=== PATIENT | male | born 1955 | race Caucasian/White ===

== ENCOUNTER 2017-08-13 10:23 | Inpatient (IN) | payer OTHER ==
[2017-08-13 11:53] LABS: Troponin I 0.011 ng/mL (< 0.028)
[2017-08-13] MEDS ORDERED: Acetaminophen 325 MG TAB PO PRN (12:45)
[2017-08-13] MEDS ORDERED: Guaifenesin DM 100-10/5 ML UDCUP PO PRN (12:45)
[2017-08-13] MEDS ORDERED: Senokot 8.6 MG TAB PO PRN (12:45)
[2017-08-13] MEDS ORDERED: Nitroglycerin 0.4 MG TAB (25 Tab Bottle) PO PRN (12:45)
[2017-08-13 13:33] VITALS: BMI 25.4
[2017-08-13 15:07] LABS: Troponin I Less than 0.010 ng/mL (< 0.028)
[2017-08-13] MEDS: Enoxaparin Sodium 80 MG/0.8 ML SYRINGE SC SCH (20:28)
[2017-08-13] MEDS: Famotidine 20 MG TAB PO SCH (20:28)
--- NOTE | 2017-08-13 20:42 | HP ---
REASON FOR ADMISSION: Chest pain. HISTORY OF PRESENTING ILLNESS: The patient gives history of waking up around 1: 00 in the morning with chest pain. He took nitroglycerin sublingual tablets. After some time, patient developed shortness of breath. He also threw up one time. It felt like he was freezing. He went inside a quilt and finally got up at 4:30. He was still not feeling well. The patient got dressed and went to get his flu shot prior to going to work. In the ER, he was evaluated and was sent over here. No complaints of palpitation, PND or orthopnea. No complaints of cough or expectoration. No complaints of urinary symptoms including frequency or urgency. PAST MEDICAL AND SURGICAL HISTORY: History of coronary artery disease with prior CABG done 4 years back, hypertension, dyslipidemia, carpal tunnel surgery , right foot surgery. CURRENT MEDICATIONS: Patient takes aspirin 81 mg p.o. daily, Lipitor 40 mg p.o. daily, lisinopril 5 mg p.o. daily, vitamin C 1000 mg p.o. daily, Plavix 75 mg p.o. daily, Ocuvite 1 capsule daily, Flonase for allergies. ALLERGIES: No known drug allergies. PERSONAL HISTORY: Smokes half pack a day and drinks 4 beers on a daily basis. Drinks 8-12 beers on the weekends. Does not abuse drugs. FAMILY HISTORY: Mother at the age of 76 years. She has had coronary artery disease. Father at the age of 74. He has had history of coronary artery disease. REVIEW OF SYSTEMS: The following complete review of systems was negative, unless otherwise mentioned in the HPI or below: CONSTITUTIONAL: Weight loss or gain, ability to conduct usual activities. SKIN: Rash, itching. EYES: Double vision, pain. ENT/MOUTH: Nose bleeding, neck stiffness, pain, tenderness. CARDIOVASCULAR: Palpitations, dyspnea on exertion, orthopnea. RESPIRATORY: Shortness of breath, wheezing, cough, hemoptysis, fever or night sweats. GASTROINTESTINAL: Poor appetite, abdominal pain, heartburn, nausea, vomiting, constipation, or diarrhea. GENITOURINARY: Urgency, frequency, dysuria, nocturia. MUSCULOSKELETAL: Pain, swelling. NEUROLOGIC/PSYCHIATRIC: Anxiety, depression. ALLERGY/IMMUNOLOGIC: Skin rash, bleeding tendency. PHYSICAL EXAMINATION: GENERAL: The patient is a 62-year-old male who is currently not in any acute distress and is chest pain free. VITAL SIGNS: Blood pressure 126/78, pulse 84 per minute, respiratory rate 18 per minute, temperature 98.2 degrees Fahrenheit, saturating 97% on room air. NECK: Supple, no elevated JVD. HEENT: Extraocular muscles intact. Pupils reacting to light. Oral cavity mucous membranes are moist. No exudates or congestion. CARDIOVASCULAR: S1, S2 heard. Regular rhythm. RESPIRATORY SYSTEM: Air entry 2+ bilateral. Scattered rhonchi plus no rales or wheezing. ABDOMEN: Soft, bowel sounds heard. No tenderness, rigidity or guarding. EXTREMITIES: No peripheral edema or calf tenderness. VASCULAR SYSTEM: Peripheral pulses 1+ bilateral. No ischemic ulcerations or gangrene. CENTRAL NERVOUS SYSTEM: No gross focal deficits seen. Patient is alert, awake , oriented x3. PSYCHIATRIC: The patient's mood is euthymic. No hallucinations or delusions. LABORATORY AND X-RAY FINDINGS: Chest x-ray done shows no acute cardiopulmonary abnormalities. White count of 10, H\T\H 16 and 48, platelet count 217 with 75% neutrophils, MCV is 93. Electrolytes are stable. BUN 18, creatinine 1.0. Liver enzymes are within normal limits. CK level was 350, CK-MB 2.9. Albumin is 4.8. Troponin x2 is negative. BNP 14.2. EKG done shows normal sinus rhythm at 84 beats per minute. There are signs of LVH. CLINICAL IMPRESSION AND PLAN: The patient will be under observation on telemetry for chest pain, rule out acute coronary syndrome. The patient has had nuclear stress test done in February of last year. He has had another nuclear stress test done in 04/2014, which was negative for any reversible ischemia. In view of these 2 stress tests done in the previous years, we will trend his troponin and consult Dr. Weiss, his Busboy. The patient states he is compliant with his medications. We will continue his aspirin, Plavix, lisinopril, and Lipitor as before. We will also place him on DuoNebs q.6 hourly. Patient clinically has no chronic obstructive pulmonary disease flare- up. The patient clinically has no wheezing or shortness of breath. We will continue to closely monitor him on telemetry. TYRELL
--- NOTE | 2017-08-13 21:48 | CON ---
DATE OF CONSULTATION: 08/13/2017 HISTORY OF PRESENT ILLNESS: The patient is a pleasant 62-year-old gentleman, who presents with recurrent chest discomfort. The patient has a long history of coronary artery disease. He has previously undergone coronary bypass graft surgery in 2000. He underwent a followup catheterization in 2011. He was found to have patent [place] to the LAD and a patent graft to the ramus. There was an occluded radial graft , The right coronary artery,had a 30% lesion. The patient subsequently has been admitted on several occasions with chest pain. He has undergone several previous nuclear stress which revealed no evidence of ischemia. The patient states he has not had any chest discomfort for the past 6 months. He was not feeling well when he woke up with left-sided chest discomfort. The patient became nauseated and vomited. He took 1 nitroglycerin tablet with improvement in his chest discomfort. The patient states that he had further left-sided chest discomfort. This radiated up into his neck and down his left arm. The patient received nitroglycerin spray and nitro paste applied to his chest wall. The patient's chest pain eventually resolved. He reports having no present chest discomfort. PAST MEDICAL HISTORY: 1. Coronary artery disease. 2. Hypertension. 3. Dyslipidemia. PAST SURGICAL HISTORY: Coronary bypass graft surgery and carpal tunnel surgery. SOCIAL HISTORY: The patient continues to smoke. MEDICATIONS: Aspirin 81 daily, Plavix 75 daily, Crestor 40 at bedtime, lisinopril 5 daily, and Zyrtec 10 mg daily. ALLERGIES: No known drug allergies. REVIEW OF SYSTEMS: Ten-point system otherwise unremarkable. No history of easy bruising or bleeding. PHYSICAL EXAMINATION: GENERAL: Well-developed gentleman in no acute distress. VITAL SIGNS: Blood pressure 131/67. NECK: No jugular venous distention. No carotid bruits. LUNGS: Clear to auscultation. HEART: Regular rate and rhythm, normal S1, S2, no murmurs. ABDOMEN: Nondistended. EXTREMITIES: Show no edema. SKIN: Warm and dry. NEUROLOGIC: Nonfocal. VASCULAR: Radial pulses are 2+. LABORATORY DATA: Sodium 141, potassium 4.4, chloride 104, bicarbonate 23, BUN 18, creatinine is 1.07. Glucose is 101. Troponin less than 0.01. White blood cell count is 10.4, hemoglobin 16.1, hematocrit 48.1, and his platelets are 217. EKG revealed normal sinus rhythm, normal ECG. IMPRESSION: 1. Unstable angina. 2. History of coronary artery bypass graft surgery with an occluded graft. 3. Hypertension. 4. Dyslipidemia. 5. Tobacco abuse. This gentleman presents with chest pain suggestive of unstable angina. We would treat the patient will full dose Lovenox. We will add Imdur. We would continue the patient on aspirin and Plavix. We will follow this patient with you through his hospitalization. TYRELL
[2017-08-14 06:31] LABS: #Basophils 0.1 thou/uL (0.0-0.2); #Eosinphils 0.5 thou/uL (0.0-0.7); #Lymphocytes 2.2 thou/uL (1.20-3.40); #Monocytes 0.8 thou/uL (0.11-0.59); #Neutrophils 5.4 thou/uL (1.40-6.50); %Basophils 0.6 % (0.0-1.0); %Eosinophils 5.4 % (0.0-10.0); %Lymphocytes 24.4 % (21.0-51.0); %Monocytes 9.4 % (0.0-10.0); Hematocrit 40.7 % (42.0-52.0); Mean Platelet Volume 6.6 fL (7.4-10.4)
[2017-08-14 07:10] LABS: Calcium 8.7 mg/dL (7.8-10.44); Chloride 103 mmol/L (98-107)
[2017-08-14 07:29] LABS: BUN (Urea Nitrogen) 18 mg/dL (8.4-25.7); Calc. Creatinine Clearance 89 mL/min (70-130); Carbon Dioxide 23 mmol/L (23-31); Cholesterol 125 mg/dl (< 200 Desired); Estimated GFR-MDRD Greater than 90; LDL Cholesterol, Calculated 45 mg/dL
[2017-08-14 07:35] LABS: Anion Gap 15 mmol/L (10-20)
[2017-08-14] MEDS ORDERED: Sodium Chloride 0.9% 10 ML ONE (08:03)
[2017-08-14] MEDS ORDERED: Enoxaparin Sodium 40 MG/0.4 ML SYRINGE SC SCH (09:00)
[2017-08-14] MEDS: Lisinopril 5 MG TAB PO SCH (09:16)
[2017-08-14] MEDS: Famotidine 20 MG TAB PO SCH ×2 (09:16→21:25)
[2017-08-14] MEDS: Atorvastatin Calcium 40 MG TAB PO SCH (09:16)
[2017-08-14] MEDS: Clopidogrel Bisulfate 75 MG TAB PO SCH (09:16)
--- NOTE | 2017-08-14 09:19 | PDOC.PN ---
- Subjective Encounter Start Date: 08/14/17 Encounter Start Time: 08:30 Subjective: no chest pain or sob or palp -: feels better this morning - Objective Resuscitation Status: Resuscitation Status FULL:Full Resuscitation MAR Reviewed: Yes Vital Signs & Weight: Vital Signs (12 hours) Temp Pulse Resp BP Pulse Ox 08/14/17 08:25 97.9 F 57 L 14 106/75 95 08/14/17 08:00 95 08/14/17 04:15 97.9 F 60 14 104/60 96 Weight Weight 153 lb 2 oz I&O: 08/13/17 08/14/17 08/15/17 06:59 06:59 06:59 Intake Total 1280 Output Total 850 Balance 430 Result Diagrams: 08/14/17 05:59 08/14/17 05:59 Phys Exam - Physical Examination HEENT: PERRLA, moist MMs Neck: no JVD, supple Respiratory: no wheezing, no rales Cardiovascular: RRR, no significant murmur Gastrointestinal: soft, non-tender, positive bowel sounds Musculoskeletal: no edema, pulses present Neurological: non-focal, moves all 4 limbs Psychiatric: A&O x 3 Dx/Plan (1) Unstable angina Status: Acute (2) CAD (coronary artery disease) Code(s): I25.10 - ATHSCL HEART DISEASE OF [place] CORONARY ARTERY W/O ANG PCTRS Status: Chronic Qualifiers: Coronary Disease-Associated Artery/Lesion type: bypass graft [place] vs. transplanted heart: [place] heart Associated angina: with unstable angina Qualified Code(s): I25.700 - Atherosclerosis of coronary artery bypass graft(s) , unspecified, with unstable angina pectoris (3) HTN (hypertension) Code(s): I10 - ESSENTIAL (PRIMARY) HYPERTENSION Status: Chronic Qualifiers: Hypertension type: essential hypertension Qualified Code(s): I10 - Essential (primary) hypertension (4) Dyslipidemia Code(s): E78.5 - HYPERLIPIDEMIA, UNSPECIFIED Status: Chronic (5) Chest pain Code(s): R07.9 - CHEST PAIN, UNSPECIFIED Status: Acute Qualifiers: Ischemic chest pain type: unstable angina pectoris - Plan on asp, plavix and lipitor -: lovenox 70mg sc q12h -: imdur daily -: will f/u * . Review of Systems - Medications/Allergies Allergies/Adverse Reactions: Allergies Allergy/AdvReac Type Severity Reaction Status Date / Time No Known Allergies Allergy Verified 10/23/15 04:31 Medications: Current Medications Acetaminophen (Tylenol) 650 mg PO Q4H PRN PRN Reason: Headache/Fever or Pain Aspirin (Aspirin Chewable) 81 mg PO DAILY [facility] Last Admin: 08/14/17 09:16 Dose: 81 mg Atorvastatin Calcium (Lipitor) 40 mg PO DAILY [facility] Last Admin: 08/14/17 09:16 Dose: 40 mg Clopidogrel Bisulfate (Plavix) 75 mg PO QAM [facility] Last Admin: 08/14/17 09:16 Dose: 75 mg Diazepam (Valium) 5 mg PO ONE [facility] Stop: 08/15/17 05:01 Enoxaparin Sodium (Lovenox) 40 mg SC [id number] [facility] Famotidine (Pepcid) 20 mg PO BID [facility] Last Admin: 08/14/17 09:16 Dose: 20 mg Guaifenesin/Dextromethorphan (Robitussin Dm) 15 ml PO Q4H PRN PRN Reason: Cough Sodium Chloride (Normal Saline 0.9%) 1,000 mls @ 100 mls/hr IV .Q10H [facility] Isosorbide Mononitrate (Imdur Er) 30 mg PO DAILY [facility] Last Admin: 08/14/17 09:17 Dose: 30 mg Lisinopril (Zestril) 5 mg PO DAILY [facility] Last Admin: 08/14/17 09:16 Dose: 5 mg Miscellaneous Information (Communication Order-Pharmacy) 0 each FS ONE [facility] Stop: 08/15/17 15:00 Nitroglycerin (Nitrostat) 0.4 mg PO Q5MIN PRN PRN Reason: Chest Pain Senna (Senokot) 2 tab PO HSPRN PRN PRN Reason: Constipation
[2017-08-14] MEDS: Enoxaparin Sodium 80 MG/0.8 ML SYRINGE SC SCH (09:23)
[2017-08-14] MEDS: Enoxaparin Sodium 40 MG/0.4 ML SYRINGE SC SCH ×2 (09:27→21:26)
--- NOTE | 2017-08-14 09:40 | PRG ---
DATE OF SERVICE: 08/14/2017 SUBJECTIVE: Mr. Woodard is doing well today. He has had no further chest pain. I reviewed the amy t. He had a prolonged episode of chest pain yesterday which was coming and going at prolonged time, also radiated into the left side of his neck and left arm. It sounds like angina. PHYSICAL EXAMINATION: VITAL SIGNS: His blood pressure is 106/75, pulse 57 and regular. LUNGS: Clear. CARDIAC: Normal S1, normal S2. ASSESSMENT: 1. Probable unstable angina. 2. Previous bypass surgery. 3. Coronary artery disease. PLAN: Recommend he proceed to cardiac catheterization. Discussed risks of stroke, heart attack, IO DINE ALLERGY, loss of blood supply to the leg or kidney, stent thrombosis, stent restenosis. He und erstands and wishes to proceed. We will schedule this for tomorrow morning.
[2017-08-14] MEDS ORDERED: Lorazepam 0.5 MG TAB PO PRN (20:40)
[2017-08-15] MEDS ORDERED: Iopamidol 370 76% 100 ML VIAL ONE ×2 (00:52→12:00)
[2017-08-15] MEDS ORDERED: Diazepam 5 MG TAB PO SCH (05:00)
[2017-08-15] MEDS: Sodium Chloride 0.9% 1,000 ML IV SCH ×2 (05:32→08:58)
[2017-08-15] MEDS: Famotidine 20 MG TAB PO SCH (05:32)
[2017-08-15] MEDS: Lisinopril 5 MG TAB PO SCH (05:33)
[2017-08-15] MEDS: Clopidogrel Bisulfate 75 MG TAB PO SCH (05:33)
[2017-08-15] MEDS: Atorvastatin Calcium 40 MG TAB PO SCH (05:34)
--- NOTE | 2017-08-15 06:48 | DIS ---
DATE OF ADMISSION: 08/13/2017 DATE OF DISCHARGE: 08/15/2017 HOSPITAL COURSE: The patient was admitted and underwent an aortic valve replacement with 3-vessel c oronary artery bypass grafting. He had placement of a #23 [place] pericardial valve. His postoperati ve course was uneventful. Discharge weight was 195 pounds. Discharge hemoglobin was 13.9, creatini ne 0.85. The patient will resume his home medications. No prescriptions have been written. Sugges tion for placement in longterm unit was rejected by the patient, although he appears able to go home with independent ambulation without difficulty. Discharge and follow up instructions were bing adam.
--- NOTE | 2017-08-15 08:32 | PDOC.PN ---
- Subjective Encounter Start Date: 08/15/17 Encounter Start Time: 08:31 Subjective: No chest pain currently -: No SOB -: No n/v/diaphoresis - Objective Resuscitation Status: Resuscitation Status FULL:Full Resuscitation MAR Reviewed: Yes Vital Signs & Weight: Vital Signs (12 hours) Temp Pulse Resp BP Pulse Ox 08/15/17 08:00 97.8 F 53 L 20 101/69 96 08/15/17 05:33 63 08/15/17 04:00 97.7 F 63 18 144/89 H 97 Weight Weight 150 lb 4.8 oz I&O: 08/14/17 08/15/17 08/16/17 06:59 06:59 06:59 Intake Total 1280 710 Output Total 850 875 Balance 430 -165 Result Diagrams: 08/14/17 05:59 08/14/17 05:59 Phys Exam - Physical Examination Constitutional: NAD HEENT: moist MMs, sclera anicteric Neck: no nodes, no JVD Respiratory: no wheezing, no rales Cardiovascular: RRR, no significant murmur Gastrointestinal: soft, non-tender, positive bowel sounds Neurological: non-focal, moves all 4 limbs Psychiatric: normal affect Skin: no rash, normal turgor Dx/Plan (1) Unstable angina Status: Acute (2) CAD (coronary artery disease) Code(s): I25.10 - ATHSCL HEART DISEASE OF [place] CORONARY ARTERY W/O ANG PCTRS Status: Chronic Qualifiers: Coronary Disease-Associated Artery/Lesion type: bypass graft [place] vs. transplanted heart: [place] heart Associated angina: with unstable angina Qualified Code(s): I25.700 - Atherosclerosis of coronary artery bypass graft(s) , unspecified, with unstable angina pectoris (3) Dyslipidemia Code(s): E78.5 - HYPERLIPIDEMIA, UNSPECIFIED Status: Chronic (4) HTN (hypertension) Code(s): I10 - ESSENTIAL (PRIMARY) HYPERTENSION Status: Chronic Qualifiers: Hypertension type: essential hypertension Qualified Code(s): I10 - Essential (primary) hypertension (5) Chest pain Code(s): R07.9 - CHEST PAIN, UNSPECIFIED Status: Acute Qualifiers: Ischemic chest pain type: unstable angina pectoris - Plan Chest pain with h/o CABG for CAD * continue cardioprudent meds * appreciate cardiology input - cath scheduled for 10am * check labs in AM
[2017-08-15] MEDS ORDERED: Midazolam HCl 2 mg/2 ml Vial ONE (09:35)
[2017-08-15] MEDS ORDERED: Fentanyl 100 MCG/2 ML VIAL ONE (09:36)
[2017-08-15] MEDS ORDERED: Acetaminophen/Codeine 30-300mg Tablet PO PRN ×2 (10:42)
[2017-08-15] MEDS ORDERED: Sodium Chloride 0.9% 1,000 ML IV SCH (10:45)
--- NOTE | 2017-08-15 11:51 | CCL ---
PROCEDURE NOTE: DATE OF PROCEDURE: 08/15/17 PROCEDURE: Left heart catheterization. INDICATION FOR PROCEDURE: Coronary artery disease with continued chest pain. DESCRIPTION OF PROCEDURE: The patient was brought to the cardiac catheterization lab in the fasting state. He was prepped and draped in the usual fashion. The patient was anesthetized with 1% Xylocaine. Under ultrasound guidan ce, a 5 [place] Micropuncture sheath was placed. Following that, coronary angiography was done using Hector left-4 catheter and Hector right-4 catheter to cannulate the right coronary artery, as well as the saphenous vein graft to the obtuse marginal and the internal mammary artery. The internal ma mmary artery graft was on the left side. Sheath injection was done at the conclusion of the procedur e. Left ventriculogram was done with an angled pigtail. The were no complications. The patient was s edated during the procedure with intravenous Versed and Fentanyl, and monitored continuously by the nurse and monitored hemodynamically continuously as well, and achieved sedation. RESULTS: 1. LEFT MAIN: Approximately 50% distal lesion. 2. LAD: 60-70% proximal lesion with a patent internal mammary artery graft to the LAD with competi tive flow. 3. CIRCUMFLEX: At the circumflex distribution, there is a ramus branch with a 90% ostial lesion wi th a patent vein graft and at the circumflex at the ostium there is approximately a 60% lesion. 4. RIGHT CORONARY ARTERY: Right dominant vessel. There is a very long, moderately calcified segmen t throughout the mid segment, approximately 60 mm in length, looks similar to the previous angiogram . Did not appear obstructive. 5. Ejection fraction 60%. 6. LV pressure 96/4. Aortic pressure 96/60. CONCLUSION: 1. Three vessel disease with patent internal mammary to the LAD. 2. Patent vein graft to the ramus. 3. The patient had previously documented occluded graft to the obtuse marginal distally, the flow a ppears adequate. 4. Long, moderately calcified plaque in the right coronary artery. RECOMMENDATION: Medical therapy.
[2017-08-15 13:13] VITALS: BP 101/68; TEMP 97.5
--- NOTE | 2017-09-08 18:01 | EKG ---
Test Reason : Blood Pressure : / mmHG Vent. Rate : 084 BPM Atrial Rate : 084 BPM P-R Int : 138 ms QRS Dur : 098 ms QT Int : 378 ms P-R-T Axes : 077 088 071 degrees QTc Int : 446 ms Normal sinus rhythm Normal ECG Confirmed by BONI CASIANO MD ([id number]), editor school photograph PRADEEP JOHNSON ([id number]) on 09/08/2017 6:01:10 PM Referred By: Confirmed By:BONI CASIANO MD
== END 2017-08-15 16:00 | DRG 287 ==
LOC: ERS 10:23 → OBSVTOIN 12:23 → 2SW 12:23 → 2NO 08-14 15:23
PROVIDERS: ADMIT Internal Medicine; ATTEND Internal Medicine
PROC: 4A023N7 Measurement of Cardiac Sampling and Pressure, Left Heart, Percutaneous Approach (ICD-10-PCS; principal; 2017-08-15)
PROC: B2111ZZ Fluoroscopy of Multiple Coronary Arteries using Low Osmolar Contrast (ICD-10-PCS; 2017-08-15)
PROC: B2151ZZ Fluoroscopy of Left Heart using Low Osmolar Contrast (ICD-10-PCS; 2017-08-15)
DX: I25.110 Atherosclerotic heart disease of native coronary artery with unstable angina pectoris (principal); I10 Essential (primary) hypertension; E78.5 Hyperlipidemia, unspecified; F17.210 Nicotine dependence, cigarettes, uncomplicated; Z79.51 Long term (current) use of inhaled steroids; Z79.82 Long term (current) use of aspirin; Z82.49 Family history of ischemic heart disease and other diseases of the circulatory system
CPT/HCPCS: 36415; 76942; 80048; 80061; 85025; 93005; 93306; 93459; 94760; 99152; A4216; C1769; J1644; J1650; J2250; J3010

== ENCOUNTER 2023-07-31 09:33 | Outpatient (CLI) | payer MEDICARE | END 2023-07-31 09:34 | disposition home or self-care (01) | LOC: CT 09:33 | PROVIDERS: ATTEND Nurse Practitioner Family | DX: Z12.2 Encounter for screening for malignant neoplasm of respiratory organs (principal); F17.210 Nicotine dependence, cigarettes, uncomplicated | CPT/HCPCS: 71271 ==